=== PATIENT | male | born 2000 | race Caucasian/White ===

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

== ENCOUNTER 2019-05-04 06:10 | Emergency (ER) ==
[2019-05-04 06:20] VITALS: BP 126/75; TEMP 99.6; BMI 23.2
[2019-05-04] MEDS ORDERED: SODIUM CHLORIDE 1,000 ML IV STA ×2 (06:49→08:58)
[2019-05-04] MEDS ORDERED: ZOFRAN 4 MG/2 ML IVP STA ×2 (06:49→08:57)
--- NOTE | 2019-05-04 06:52 | ED.PDOC ---
General ED Provider: Dr. CARLOS CUADRA Chief Complaint: Nausea/Vomiting Stated Complaint: Patient compains of Nausea / vomiting and diarrhea since yesterday. Think he may have drunk some old chocolate milk. Time Seen by Physician: 06:50 Mode of Arrival: Walk-In Information Source: Patient Nursing and Triage Documentation Reviewed and Agree: Yes Does patient meet sepsis criteria?: No System Inflammatory Response Syndrome: Not Applicable Sepsis Protocol: For patient's 13 years and over: Temp is 96.8 and below OR 101 and greater Pulse >90 BPM Resp >20/minute Acutely Altered Mental Status Are patient's symptoms suggestive of a new infection, such as: -Pneumonia -Skin, Soft Tissue -Endocarditis -UTI -Bone, Joint Infection -Implantable Device -Acute Abdominal Infection -Wound Infection -Meningitis -Blood Stream Catheter Infection -Unknown GI Complaint Exam - Vomiting/Diarrhea Complaint/Exam Onset/Duration: tonight Symptoms Are: Still present Episodes of Vomiting over last 24 Hours: 5 Episodes of Diarrhea Over Last 24 Hours: 10 Initial Severity: Moderate Current Severity: Moderate Character of Vomiting: Reports: Non-bilious Character of Diarrhea: Reports: Watery Aggravating: Reports: Food Alleviating: Reports: None Associated Signs and Symptoms: Reports: Cramping. Denies: Dizziness, Light- headedness, Melena, Hematemesis, Fever Related History: Denies: Similar episode, Recent antibiotics Last Oral Intake: last night Last Bowel Movement: just prior to arrival- watery Non-GI Risk Factors: Reports: None Surgical Obstruction Risk Factors: Reports: None Abdominal Findings: Present: CVA Tenderness (mild on the left ) Kussmaul Respirations Present: No Differential Diagnoses: Viral Gastroenteritis, Bacterial Gastroenteritis, Other (Food poisoning ) Review of Systems - Review Of Systems Constitutional: Reports: No symptoms Eyes: Reports: No symptoms Ears, Nose, Mouth, Throat: Reports: No symptoms Respiratory: Reports: No symptoms Cardiac: Reports: No symptoms GI: Reports: Abdominal pain (cramps ), Diarrhea, Nausea, Vomiting : Reports: No symptoms Musculoskeletal: Reports: No symptoms Skin: Reports: No symptoms Neurological: Reports: No symptoms Endocrine: Reports: No symptoms Hematologic/Lymphatic: Reports: No symptoms All Other Systems: Reviewed and Negative Past Medical History - Past Medical History Endocrine: Reports: None Cardiovascular: Reports: None Respiratory: Reports: None Hematological: Reports: None Gastrointestinal: Reports: None Genitourinary: Reports: None Neuro/Psych: Reports: None Musculoskeletal: Reports: None Cancer: Reports: None - Surgical History General Surgical History: Reports: None - Family History Family History: Reports: None - Social History Smoking Status: Never smoker, Vaping Hx Substance Use: No Alcohol Screening: Occasionally - Immunizations Tetanus Shot up to Date: Yes Physical Exam - Physical Exam Appearance: Ill-appearing Ill-appearing: Mild Pain Distress: Mild Neck: Supple Respiratory: Airway patent, Breath sounds clear, Breath sounds equal, Respirations nonlabored Cardiovascular: Pulses normal, Tachycardia GI/: Soft, Nontender Musculoskeletal: Normal strength, ROM intact, No edema, No calf tenderness Skin: Warm, Dry, Normal color Neurological: Sensation intact, Motor intact, Reflexes intact, Cranial nerves intact, Alert, Oriented Psychiatric: Affect appropriate, Mood appropriate Physician Notification - Case Discussed Physician Notified: Dr. García Time of Notification: 07:00 Critical Care Note - Critical Care Note Total Time (mins): 30 Course - Course Hematology/Chemistry: 05/04/19 06:55 05/04/19 06:55 Orders, Labs, Meds: Lab Review 05/04/19 05/04/19 05/04/19 06:20 06:55 06:55 WBC 9.56 RBC 4.68 L Hgb 14.6 Hct 41.9 L MCV 89.5 MCH 31.2 H MCHC 34.8 RDW Coeff of Karina 12.2 Plt Count 131 L Immature Gran % (Auto) 0.2 Neut % (Auto) 89.1 Lymph % (Auto) 3.3 L [place] % (Auto) 5.9 Eos % (Auto) 1.3 Baso % (Auto) 0.2 Immature Gran # (Auto) 0.0 Neut # (Auto) 8.5 H Lymph # (Auto) 0.3 L [place] # (Auto) 0.6 Eos # (Auto) 0.1 Baso # (Auto) 0.0 Sodium 140.9 Potassium 3.89 Chloride 104.5 Carbon Dioxide 25.7 Anion Gap 14.59 BUN 13.8 Creatinine 0.85 Estimated GFR (MDRD) 116.00 BUN/Creatinine Ratio 16.23 Glucose 100.9 Calcium 8.97 Total Bilirubin 0.92 AST 47.3 H ALT 31.8 Alkaline Phosphatase 70.3 Total Protein 7.12 Albumin 4.38 Globulin 2.74 Albumin/Globulin Ratio 1.59 Amylase 37.2 Lipase 44.4 Urine Color Yellow Urine Clarity Clear Urine pH 6.0 Ur Specific [place] >=1.030 Urine Protein Negative Urine Glucose (UA) Negative Urine Ketones Trace Urine Blood Negative Urine Nitrite Negative Urine Bilirubin 1+ Urine Urobilinogen 0.2 Ur Leukocyte Esterase Negative Orders Category Date Time Status ED IV/MEDIPORT/POWERPORT .ONCE EMERGENCY 05/04/19 06:49 Active AMYLASE Stat LAB 05/04/19 06:55 Completed CBC W/ AUTO DIFF Stat LAB 05/04/19 06:55 Completed COMPREHENSIVE METABOLIC PANEL Stat LAB 05/04/19 06:55 Completed LIPASE Stat LAB 05/04/19 06:55 Completed URINALYSIS C & S IF INDICATED Stat LAB 05/04/19 06:20 Completed 0.9 % Sodium Chloride [Saline Flush] MEDS 05/04/19 06:49 Discontinued 1 syr IVF PRN PRN Diphenoxylate HCl/Atropine [Lomotil] MEDS 05/04/19 06:57 Discontinued 1 tab PO ONCE STA Ondansetron HCl/Pf [Zofran 4 mg/2 ml] MEDS 05/04/19 06:49 Discontinued 4 mg IVP ONCE STA Ondansetron HCl/Pf [Zofran 4 mg/2 ml] MEDS 05/04/19 08:57 Discontinued 4 mg IVP ONCE STA Sodium Chloride 0.9% [Sodium Chloride] 1,000 ml MEDS 05/04/19 06:49 Discontinued IV BOLUS Sodium Chloride 0.9% [Sodium Chloride] 1,000 ml MEDS 05/04/19 08:[address] ABDOMEN/PELVIS WO CONTRAST Stat RADS 05/04/19 08:06 Completed Medications Discontinued Medications Generic Name Dose Route Start Last Admin Trade Name Freq PRN Reason Stop Dose Admin Diphenoxylate HCl/Atropine 1 tab 05/04/19 06:57 05/04/19 07:06 Lomotil PO 05/04/19 06:58 1 tab ONCE STA Administration Sodium Chloride 1,000 mls @ 1,000 mls/hr 05/04/19 06:49 05/04/19 07:06 Sodium Chloride IV 05/04/19 07:48 1,000 mls/hr BOLUS STA Administration Sodium Chloride 1,000 mls @ 1,000 mls/hr 05/04/19 08:58 05/04/19 09:03 Sodium Chloride IV 05/04/19 09:57 1,000 mls/hr BOLUS STA Administration Ondansetron HCl 4 mg 05/04/19 06:49 05/04/19 07:08 Zofran 4 Mg/2 Ml IVP 05/04/19 06:50 4 mg ONCE STA Administration Ondansetron HCl 4 mg 05/04/19 08:57 05/04/19 09:03 Zofran 4 Mg/2 Ml IVP 05/04/19 08:58 4 mg ONCE STA Administration Sodium Chloride 1 syr 05/04/19 06:49 05/04/19 07:06 Saline Flush IVF 1 syr PRN PRN Administration To flush IV Vital Signs: Temp Pulse Resp BP Pulse Ox 05/04/19 06:11 99.6 F 104 H 18 126/75 95 Departure - Departure Time of Disposition: 10:13 Disposition: HOME SELF-CARE Discharge Problem: Gastroenteritis Instructions: Gastroenteritis (ED) Condition: Fair Pt referred to PMD for follow-up: Yes IPMP verified?: No Additional Instructions: Push fluids Follow up with PCP in 3 days Zofran 4 mg twice a day for 36 hours #3 Lomitil 2 tabs four times a day for 24 #8 Allergies/Adverse Reactions: Allergies No Known Allergies Allergy (Verified 05/04/19 06:20) Home Medications: Ambulatory Orders 1 [No Reported Medications] 05/04/19 Disposition Discussed With: Patient, Family
[2019-05-04] MEDS ORDERED: LOMOTIL PO STA (06:57)
--- NOTE | 2019-05-04 08:53 | CT ---
EXAM: CT abdomen pelvis without contrast HISTORY: Low abdominal pain and vomiting COMPARISON: None TECHNIQUE: CT abdomen pelvis performed without intravenous contrast. Coronal and sagittal reformatt ed images obtained. FINDINGS: Lung bases clear. No free air. No acute abnormalities of the bones. Heart normal in siz e. Evaluation organ parenchyma limited without contrast. The the liver unremarkable. Gallbladder un remarkable. Pancreas unremarkable. Spleen unremarkable. 15 for granulomatous calcification. The a drenals unremarkable. Kidneys unremarkable. Bladder unremarkable. Prostate normal in size. Aorta normal in caliber. No lymphadenopathy or ascites. Stomach unremarkable. No dilated loops small bow el. Fluid-filled loops small bowel throughout the small bowel with scattered fluid levels likely rel ated to enteritis. Fluid in the right colon. Appendix appears normal. Colon unremarkable. IMPRESSION: Findings suggesting enteritis. Fluid in the right colon likely relates to enteritis proc ess and can be correlated for diarrhea.
== END 2019-05-04 10:00 | disposition home or self-care (01) ==
LOC: ED 06:10
DX: K52.9 Noninfective gastroenteritis and colitis, unspecified (principal); Z72.0 Tobacco use
CPT/HCPCS: 36415; 80053; 81001; 82150; 83690; 85025; 96361; 96374; 96376; 99283